=== PATIENT | female | born 1970 | race Caucasian/White ===

== ENCOUNTER 2017-12-01 11:21 | Emergency (ER) | payer MEDICAID ==
[~2017-12-01] VITALS: Ht 165.1 cm; Wt 70.0 kg
[~2017-12-01 11:21] MED LIST: DEPER5 PO; DIPH25CA83 PO; FLUO40CA8 PO; LEVO112T7 PO; LURA40TA PO; TRAZ-129 PO
[2017-12-01] MEDS: SODIUM CHLORIDE 0.9% 1,000 ML IV ONE (12:23)
[2017-12-01] MEDS: ONDANSETRON HCL 4MG/2ML VIAL IV ONE (12:23)
[2017-12-01 12:36] LABS: EOSINOPHILS % 3.2 % (0.0-5.0); HEMATOCRIT. 33.1 % (36.0-48.0); HEMOGLOBIN. 11.3 g/dL (12.0-16.0); LYMPHOCYTES % 42.1 % (20.0-50.0); MEAN CORPUSCULAR HEMOGLOBIN 31.2 pg (28.0-32.0); MEAN CORPUSCULAR VOLUME 91.6 fL (81.0-99.0); MEAN PLATELET VOLUME 10.2 fl (7.4-10.4); MONOCYTES % 7.2 % (2.0-8.0); NEUTROPHILS % 46.5 % (40.0-76.0); PLATELET 147 x1000/uL (130-400); RED BLOOD CELL COUNT 3.61 mill/uL (4.2-5.4); RED CELL DISTRIBUTION WIDTH 12.6 % (11.6-14.6)
[2017-12-01 12:49] LABS: AMYLASE 26 IU/L (25-115); BETA HYDROXYBUTYRATE 0.1 mMol/L (0.0-0.3); CARBON DIOXIDE 28 mEq/L (21-32); CHLORIDE 102 mEq/L (98-107); TROPONIN I < 0.02 ng/mL (0.00-0.04)
[2017-12-01 13:10] LABS: HCG SCREEN NEGATIVE
[2017-12-01] MEDS: ACETAMINOPHEN 325MG TABLET PO ONE (13:49)
[2017-12-01] MEDS: INSULIN REGULAR (HUMULIN R) 300UNITS/3ML SUBCUT ONE (13:49)
[2017-12-01] MEDS: KETOROLAC 30MG/ML VIAL IV ONE (14:17)
[2017-12-01 16:53] VITALS: BP 98/72
== END 2017-12-01 17:04 | disposition home or self-care (01) ==
LOC: ER 12:02 → EDBEDREQ 12:12 → CANBEDREQ 16:32 → ER 17:04
DX: E11.65 Type 2 diabetes mellitus with hyperglycemia (principal); F41.9 Anxiety disorder, unspecified; F31.9 Bipolar disorder, unspecified; Z79.4 Long term (current) use of insulin; Z91.19 Patient's noncompliance with other medical treatment and regimen; Z90.710 Acquired absence of both cervix and uterus
CPT/HCPCS: 36415; 71045; 80053; 82010; 82150; 82962; 83690; 84484; 84703; 85025; 93005; 96372; 96374; 99285; J1815; J2405; J7030